=== PATIENT | female | born 1985 | race Caucasian/White ===

== ENCOUNTER 2016-11-15 10:30 | Emergency (ER) | payer OTHER ==
[~2016-11-15] VITALS: Ht 165.1 cm; Wt 100.0 kg
[~2016-11-15 10:30] MED LIST: ALPR0.5T8 PO; FLUT16H NASAL; IBUP-1547 PO; IPRA4AER IH; MONT10TA21 PO; OMEP20 PO; VENL-193 PO
[2016-11-15] MEDS ORDERED: ALBUTEROL SULFATE 5 MG/ML 20 ML NEB SOLN [BULK] NEB ONE (11:30)
[2016-11-15] MEDS ORDERED: IPRATROPIUM BROMIDE 0.5 MG/2.5 ML NEB SOLUTION NEB ONE (11:30)
[2016-11-15] MEDS ORDERED: KDUR10 PO (11:45)
[2016-11-15] MEDS ORDERED: CALC-1093 PO (11:45)
[2016-11-15] MEDS ORDERED: PRED20 PO (11:54)
[2016-11-15] MEDS ORDERED: ALBUTEROL SULFATE/IPRATROPIUM 100-20 MCG/SPRAY 4 GM INHALER IH ONE (13:30)
[2016-11-15 14:12] VITALS: BP 128/54
== END 2016-11-15 14:13 | disposition home or self-care (01) ==
LOC: EMS 10:31
DX: J45.901 Unspecified asthma with (acute) exacerbation (principal); J44.9 Chronic obstructive pulmonary disease, unspecified; F17.210 Nicotine dependence, cigarettes, uncomplicated
CPT/HCPCS: 94644; 99285; J7611